=== PATIENT | female | born 1955 | race Caucasian/White ===

== ENCOUNTER 2020-04-07 13:30 | Inpatient (IN) ==
[2020-04-07] MEDS ORDERED: *HR* Warfarin 4 MG TABLET PO SCH (14:00)
[2020-04-07] MEDS: cloNIDine HCL 0.1 MG TABLET PO SCH ×2 (15:08→22:21)
[2020-04-07] MEDS: *HR* OxyCODONE/APAP 5/325 TABLET PO PRN ×2 (15:08→22:21)
[2020-04-07] MEDS: *HR* Metformin 500 MG TABLET PO SCH (17:33)
[2020-04-07] MEDS ORDERED: *HR* Warfarin 2 MG TABLET PO ONE (18:00)
[2020-04-07] MEDS ORDERED: Warfarin perPT PO PRN (18:00)
[2020-04-07] MEDS ORDERED: Dextrose Gel 15 GM/37.5 ML TUBE PO PRN ×2 (19:57)
[2020-04-07] MEDS ORDERED: D5% in Water 1,000 ML IVC PRN (19:57)
[2020-04-07] MEDS ORDERED: *HR* Dextrose 50 % in Water (Vial) 50 ML VIAL IVP PRN (19:57)
[2020-04-07] MEDS: Insulin LISPRO 300 UNITS/3 ML VIAL SQ SCH (21:57)
[2020-04-07] MEDS: Metoprolol 100 MG TABLET PO SCH (22:21)
[2020-04-08] MEDS: *HR* OxyCODONE/APAP 5/325 TABLET PO PRN (04:20)
[2020-04-08 05:40] LABS: Basophils % 0.3 %; Eosinophils # 0.3 K/mcL (0.0-0.6); Eosinophils % 2.3 %; Hematocrit 25.5 % (35.3-44.9); Hemoglobin 8.1 g/dL (11.5-15.4); Immature Granulocytes % 0.4 % (0-4); Lymphocytes % 8.3 %; Mean Corpuscular HGB Conc 31.8 g/dL (31.6-35.5); Mean Corpuscular Hemoglobin 28.8 pg (28.0-33.3); Mean Corpuscular Volume 90.7 fL (83.0-100.0); Mean Platelet Volume 10.3 fL (9.4-12.4); Monocytes # 0.8 K/mcL (0.0-1.3); Neutrophils # 9.4 K/mcL (1.6-8.9); Platelet Count 339 K/mcL (140-400); Red Blood Count 2.81 M/mcL (3.82-4.97); Red Cell Distribution Width 17.9 % (11.5-14.5); Segmented Neutrophils % 81.7 %; White Blood Count 11.5 K/mcL (4.3-11.1)
[2020-04-08 05:59] LABS: Calcium 7.8 mg/dL (8.6-10.3)
[2020-04-08 06:00] LABS: INR 1.2; Prothrombin Time 13.4 Seconds (9.4-12.1)
[2020-04-08] MEDS: Insulin LISPRO 300 UNITS/3 ML VIAL SQ SCH ×4 (07:09→20:20)
[2020-04-08] MEDS: Metoprolol 100 MG TABLET PO SCH ×2 (09:32→20:35)
[2020-04-08] MEDS: cloNIDine HCL 0.1 MG TABLET PO SCH ×3 (09:32→20:35)
[2020-04-08] MEDS: SODIUM ZIRCONIUM CYCLOSILICATE 5 GM POWD.PACK PO SCH (09:32)
[2020-04-08] MEDS: amLODIPine 5 MG TABLET PO SCH (09:32)
[2020-04-08] MEDS: Aspirin Enteric Coated 81 MG Tablet PO SCH (09:32)
[2020-04-08] MEDS: *HR* Metformin 500 MG TABLET PO SCH ×2 (09:32→16:34)
[2020-04-08] MEDS: *HR* OxyCODONE/APAP 7.5/325 TABLET PO PRN ×2 (12:17→18:19)
[2020-04-08] MEDS ORDERED: *HR* Warfarin 4 MG TABLET PO SCH (13:58)
[2020-04-08] MEDS ORDERED: *HR* Warfarin 3 MG TABLET PO ONE (18:00)
[2020-04-09] MEDS ORDERED: Acetaminophen 325 MG TABLET PO ONE (00:31)
[2020-04-09 07:45] LABS: INR 1.6
[2020-04-09 07:46] LABS: Prothrombin Time 18.4 Seconds (9.4-12.1)
[2020-04-09] MEDS: SODIUM ZIRCONIUM CYCLOSILICATE 5 GM POWD.PACK PO SCH (07:58)
[2020-04-09] MEDS: amLODIPine 5 MG TABLET PO SCH (07:59)
[2020-04-09] MEDS: *HR* Metformin 500 MG TABLET PO SCH ×2 (07:59→16:02)
[2020-04-09] MEDS: Metoprolol 100 MG TABLET PO SCH ×2 (07:59→21:08)
[2020-04-09] MEDS: Aspirin Enteric Coated 81 MG Tablet PO SCH (07:59)
[2020-04-09] MEDS: cloNIDine HCL 0.1 MG TABLET PO SCH ×3 (07:59→21:08)
[2020-04-09] MEDS: Insulin LISPRO 300 UNITS/3 ML VIAL SQ SCH ×4 (08:01→20:56)
[2020-04-09 11:00] LABS: Estimated Average Glucose 140 mg/dl
[2020-04-09] MEDS ORDERED: *HR* Warfarin 2 MG TABLET PO ONE (18:00)
[2020-04-09] MEDS: Ondansetron ODT 4 MG TAB.RAPDIS SL PRN (19:43)
[2020-04-10] MEDS: SODIUM ZIRCONIUM CYCLOSILICATE 5 GM POWD.PACK PO SCH (07:39)
[2020-04-10] MEDS: amLODIPine 5 MG TABLET PO SCH (07:39)
[2020-04-10] MEDS: Metoprolol 100 MG TABLET PO SCH ×2 (07:40→20:34)
[2020-04-10] MEDS: cloNIDine HCL 0.1 MG TABLET PO SCH ×3 (07:40→20:34)
[2020-04-10] MEDS: *HR* Metformin 500 MG TABLET PO SCH ×2 (07:40→16:56)
[2020-04-10] MEDS: Aspirin Enteric Coated 81 MG Tablet PO SCH (07:40)
[2020-04-10] MEDS: Insulin LISPRO 300 UNITS/3 ML VIAL SQ SCH ×4 (07:45→20:34)
[2020-04-10 08:42] LABS: Prothrombin Time 34.1 Seconds (9.4-12.1)
[2020-04-10] MEDS: Methyl Salicylate/Menthol 57 APPL/57 GM TUBE TP PRN (20:47)
[2020-04-11 07:18] LABS: INR 4.4; Prothrombin Time 49.9 Seconds (9.4-12.1)
[2020-04-11] MEDS: amLODIPine 5 MG TABLET PO SCH (08:45)
[2020-04-11] MEDS: cloNIDine HCL 0.1 MG TABLET PO SCH ×3 (08:45→21:28)
[2020-04-11] MEDS: Aspirin Enteric Coated 81 MG Tablet PO SCH (08:45)
[2020-04-11] MEDS: Insulin LISPRO 300 UNITS/3 ML VIAL SQ SCH ×4 (08:45→21:29)
[2020-04-11] MEDS: SODIUM ZIRCONIUM CYCLOSILICATE 5 GM POWD.PACK PO SCH (08:45)
[2020-04-11] MEDS: Metoprolol 100 MG TABLET PO SCH ×2 (08:45→21:29)
[2020-04-11] MEDS: *HR* Metformin 500 MG TABLET PO SCH ×2 (08:46→16:44)
[2020-04-11] MEDS: Methyl Salicylate/Menthol 57 APPL/57 GM TUBE TP PRN (11:10)
[2020-04-12 06:35] LABS: Hemoglobin 7.6 g/dL (11.5-15.4); Mean Corpuscular HGB Conc 31.7 g/dL (31.6-35.5); Mean Corpuscular Hemoglobin 27.9 pg (28.0-33.3); Mean Corpuscular Volume 88.2 fL (83.0-100.0); Mean Platelet Volume 10.4 fL (9.4-12.4); Platelet Count 430 K/mcL (140-400); Red Blood Count 2.72 M/mcL (3.82-4.97); White Blood Count 9.5 K/mcL (4.3-11.1)
[2020-04-12 06:46] LABS: INR 2.5
[2020-04-12 06:56] LABS: Calcium 7.2 mg/dL (8.6-10.3); Potassium 3.3 mEq/L (3.5-5.1)
[2020-04-12] MEDS: *HR* Metformin 500 MG TABLET PO SCH ×2 (08:02→16:38)
[2020-04-12] MEDS: Aspirin Enteric Coated 81 MG Tablet PO SCH (08:03)
[2020-04-12] MEDS: amLODIPine 5 MG TABLET PO SCH (08:03)
[2020-04-12] MEDS: cloNIDine HCL 0.1 MG TABLET PO SCH ×3 (08:03→20:00)
[2020-04-12] MEDS: Insulin LISPRO 300 UNITS/3 ML VIAL SQ SCH ×4 (09:23→20:00)
[2020-04-12] MEDS: Metoprolol 100 MG TABLET PO SCH ×2 (09:29→20:04)
[2020-04-12] MEDS: SODIUM ZIRCONIUM CYCLOSILICATE 5 GM POWD.PACK PO SCH (09:30)
[2020-04-12] MEDS ORDERED: *HR* Warfarin 2 MG TABLET PO ONE (18:00)
[2020-04-13 05:25] LABS: INR 2.2; Prothrombin Time 24.7 Seconds (9.4-12.1)
[2020-04-13] MEDS: cloNIDine HCL 0.1 MG TABLET PO SCH ×3 (07:56→21:52)
[2020-04-13] MEDS: Insulin LISPRO 300 UNITS/3 ML VIAL SQ SCH ×4 (07:56→21:52)
[2020-04-13] MEDS: Aspirin Enteric Coated 81 MG Tablet PO SCH (07:56)
[2020-04-13] MEDS: *HR* Metformin 500 MG TABLET PO SCH ×2 (07:56→16:39)
[2020-04-13] MEDS: Metoprolol 100 MG TABLET PO SCH ×2 (07:56→21:51)
[2020-04-13] MEDS: amLODIPine 5 MG TABLET PO SCH (07:56)
[2020-04-13] MEDS: SODIUM ZIRCONIUM CYCLOSILICATE 5 GM POWD.PACK PO SCH (07:56)
[2020-04-13] MEDS ORDERED: *HR* Warfarin 2 MG TABLET PO ONE (18:00)
[2020-04-14 07:10] LABS: INR 2.4; Prothrombin Time 27.5 Seconds (9.4-12.1)
[2020-04-14] MEDS: *HR* Metformin 500 MG TABLET PO SCH (09:09)
[2020-04-14] MEDS: cloNIDine HCL 0.1 MG TABLET PO SCH ×3 (09:10→21:15)
[2020-04-14] MEDS: amLODIPine 5 MG TABLET PO SCH (09:11)
[2020-04-14] MEDS: Metoprolol 100 MG TABLET PO SCH ×2 (09:15→20:59)
[2020-04-14] MEDS: Aspirin Enteric Coated 81 MG Tablet PO SCH (09:16)
[2020-04-14] MEDS: Insulin LISPRO 300 UNITS/3 ML VIAL SQ SCH ×4 (09:51→20:39)
[2020-04-14 17:58] LABS: Basophils % 0.3 %; Eosinophils # 0.3 K/mcL (0.0-0.6); Eosinophils % 2.8 %; Hematocrit 27.3 % (35.3-44.9); Hemoglobin 8.9 g/dL (11.5-15.4); Immature Granulocytes % 0.5 % (0-4); Lymphocytes % 9.4 %; Mean Corpuscular HGB Conc 32.6 g/dL (31.6-35.5); Mean Corpuscular Hemoglobin 28.3 pg (28.0-33.3); Mean Corpuscular Volume 86.7 fL (83.0-100.0); Mean Platelet Volume 10.1 fL (9.4-12.4); Monocytes # 0.9 K/mcL (0.0-1.3); Monocytes % 8.2 %; Neutrophils # 8.2 K/mcL (1.6-8.9); Platelet Count 667 K/mcL (140-400); Red Blood Count 3.15 M/mcL (3.82-4.97); Red Cell Distribution Width 16.7 % (11.5-14.5); Segmented Neutrophils % 78.8 %; White Blood Count 10.4 K/mcL (4.3-11.1)
[2020-04-14] MEDS ORDERED: *HR* Warfarin 2 MG TABLET PO ONE (18:00)
[2020-04-14 18:17] LABS: Calcium 7.8 mg/dL (8.6-10.3); Potassium 3.4 mEq/L (3.5-5.1)
[2020-04-14] MEDS: Ondansetron ODT 4 MG TAB.RAPDIS SL PRN (21:19)
[2020-04-15] MEDS: Insulin LISPRO 300 UNITS/3 ML VIAL SQ SCH ×4 (07:33→20:16)
[2020-04-15 07:52] LABS: Prothrombin Time 33.6 Seconds (9.4-12.1)
[2020-04-15] MEDS: Aspirin Enteric Coated 81 MG Tablet PO SCH (09:00)
[2020-04-15] MEDS: amLODIPine 5 MG TABLET PO SCH (09:02)
[2020-04-15] MEDS: cloNIDine HCL 0.1 MG TABLET PO SCH ×3 (09:02→20:16)
[2020-04-15] MEDS: Metoprolol 100 MG TABLET PO SCH ×2 (13:03→20:16)
[2020-04-15] MEDS ORDERED: *HR* Warfarin 1 MG TABLET PO ONE (18:00)
[2020-04-16 07:31] LABS: INR 2.4; Prothrombin Time 27.2 Seconds (9.4-12.1)
[2020-04-16] MEDS: Insulin LISPRO 300 UNITS/3 ML VIAL SQ SCH ×4 (08:14→20:35)
[2020-04-16] MEDS: Aspirin Enteric Coated 81 MG Tablet PO SCH (08:16)
[2020-04-16] MEDS: cloNIDine HCL 0.1 MG TABLET PO SCH ×3 (08:16→20:34)
[2020-04-16] MEDS: Metoprolol 100 MG TABLET PO SCH ×2 (08:16→20:34)
[2020-04-16] MEDS: amLODIPine 5 MG TABLET PO SCH (08:16)
[2020-04-16] MEDS ORDERED: *HR* Warfarin 1 MG TABLET PO ONE (18:00)
[2020-04-17 06:36] LABS: INR 1.7; Prothrombin Time 19.1 Seconds (9.4-12.1)
[2020-04-17] MEDS: Aspirin Enteric Coated 81 MG Tablet PO SCH (08:06)
[2020-04-17] MEDS: Metoprolol 100 MG TABLET PO SCH ×2 (08:06→21:24)
[2020-04-17] MEDS: cloNIDine HCL 0.1 MG TABLET PO SCH ×3 (08:06→21:24)
[2020-04-17] MEDS: amLODIPine 5 MG TABLET PO SCH (08:06)
[2020-04-17] MEDS: Insulin LISPRO 300 UNITS/3 ML VIAL SQ SCH ×4 (08:06→21:25)
[2020-04-18 05:45] LABS: INR 1.3; Prothrombin Time 14.5 Seconds (9.4-12.1)
[2020-04-18 06:36] VITALS: BP 174/70
[2020-04-18] MEDS: Insulin LISPRO 300 UNITS/3 ML VIAL SQ SCH (07:33)
[2020-04-18] MEDS: Metoprolol 100 MG TABLET PO SCH (09:03)
[2020-04-18] MEDS: Aspirin Enteric Coated 81 MG Tablet PO SCH (09:03)
[2020-04-18] MEDS: amLODIPine 5 MG TABLET PO SCH (09:03)
[2020-04-18] MEDS: cloNIDine HCL 0.1 MG TABLET PO SCH (09:03)
== END 2020-04-18 10:50 | disposition other institution (70) | DRG 687 ==
LOC: INPPIK 14:17
PROVIDERS: ADMIT Family Medicine; ATTEND Family Medicine

== ENCOUNTER 2021-01-10 13:30 | Inpatient (IN) ==
[2021-01-10 14:36] LABS: Basophils # 0.1 K/mcL (0.0-0.2); Basophils % 0.5 %; Eosinophils # 0.1 K/mcL (0.0-0.6); Eosinophils % 0.5 %; Hematocrit 23.4 % (35.3-44.9); Hemoglobin 7.3 g/dL (11.5-15.4); Immature Granulocytes % 0.3 % (0-4); Lymphocytes # 1.1 K/mcL (0.6-4.6); Lymphocytes % 10.1 %; Mean Corpuscular HGB Conc 31.2 g/dL (31.6-35.5); Mean Corpuscular Hemoglobin 28.2 pg (28.0-33.3); Mean Corpuscular Volume 90.3 fL (83.0-100.0); Mean Platelet Volume 9.3 fL (9.4-12.4); Monocytes # 0.8 K/mcL (0.0-1.3); Monocytes % 7.5 %; Neutrophils # 8.9 K/mcL (1.6-8.9); Platelet Count 588 K/mcL (140-400); Red Blood Count 2.59 M/mcL (3.82-4.97); Red Cell Distribution Width 14.6 % (11.5-14.5); Segmented Neutrophils % 81.1 %; White Blood Count 10.9 K/mcL (4.3-11.1)
[2021-01-10 14:49] LABS: Bilirubin,Urine Negative (Negative); Blood,Urine Small (Negative); Clarity,Urine Slightly Cloudy (Clear); Color,Urine Yellow (Yellow); Glucose,Urine (UA) 100 mg/dL (Normal); Ketones,Urine Negative (Negative); Leukocyte Esterase,Urine Trace (Negative); Nitrite,Urine Negative (Negative); PH,Urine 5.5 pH Units (5.0-8.0); Protein,Urine >=300 mg/dL (Neg-Trace); Urobilinogen,Urine Normal (Normal)
[2021-01-10 14:56] LABS: Albumin/Globulin Ratio 1.1 (1.1-2.2); Bilirubin,Direct 0.1 mg/dL (0.0-0.2); Bilirubin,Total 0.1 mg/dL (0.3-1.0); Globulin 2.8 g/dL (2.4-3.5); Potassium 5.5 mEq/L (3.5-5.1); Total Protein 5.8 g/dL (6.4-8.9)
[2021-01-10 14:56] LABS: Bacteria,Urine Moderate per hpf (None-Few); Squamous Epithelial Cell,Urine Moderate per hpf (None-Few); WBC,Urine 50-100 per hpf (0-3)
[2021-01-10] MEDS ORDERED: 0.9 % Sodium Chloride 500 ML IVC ONE (15:00)
[2021-01-10] MEDS ORDERED: *HR* Dextrose 50 % in Water (Syg) 50 ML SYRINGE IVP ONE (15:00)
[2021-01-10] MEDS ORDERED: Insulin Human Regular 10 UNIT in 0.9 % Sodium Chloride 10 ML IV ONE (15:00)
[2021-01-10 15:13] LABS: Activated Partial Thrombo Time 52.1 Seconds (26.0-36.0); INR 3.5; Prothrombin Time 38.9 Seconds (9.4-12.1)
[2021-01-10] MEDS: 0.9 % Sodium Chloride 1,000 ML IVC SCH ×2 (15:37→23:56)
[2021-01-10] MEDS ORDERED: Melatonin 3 MG TABLET PO PRN (17:15)
[2021-01-10] MEDS ORDERED: MOM Conc 10 ML UD.LIQ PO PRN (17:15)
[2021-01-10] MEDS ORDERED: Ondansetron 4 MG/2 ML VIAL IVP PRN (17:15)
[2021-01-10] MEDS ORDERED: Mag Hydrox/Al Hydrox/Simeth 30 ML UDC PO PRN (17:15)
[2021-01-10] MEDS ORDERED: Naloxone 0.4 MG/ML INJ IVP PRN (17:15)
[2021-01-10] MEDS ORDERED: D5% in Water 1,000 ML IVC PRN (17:18)
[2021-01-10] MEDS ORDERED: *HR* Dextrose 50 % in Water (Vial) 50 ML VIAL IVP PRN (17:18)
[2021-01-10] MEDS ORDERED: Dextrose Gel 15 GM/37.5 ML TUBE PO PRN ×2 (17:18)
[2021-01-10] MEDS ORDERED: *HR* Warfarin 3 MG TABLET PO SCH (19:29)
[2021-01-10] MEDS: Metoprolol 100 MG TABLET PO SCH (21:01)
[2021-01-10] MEDS: cloNIDine HCL 0.1 MG TABLET PO SCH (21:01)
[2021-01-10] MEDS: Insulin LISPRO 300 UNITS/3 ML VIAL SUBQ SCH (21:07)
[2021-01-11 04:01] LABS: Hematocrit 19.2 % (35.3-44.9); Hemoglobin 6.1 g/dL (11.5-15.4); Mean Corpuscular HGB Conc 31.8 g/dL (31.6-35.5); Mean Corpuscular Hemoglobin 28.5 pg (28.0-33.3); Mean Corpuscular Volume 89.7 fL (83.0-100.0); Mean Platelet Volume 9.8 fL (9.4-12.4); Platelet Count 455 K/mcL (140-400); Red Blood Count 2.14 M/mcL (3.82-4.97); Red Cell Distribution Width 14.2 % (11.5-14.5)
[2021-01-11 04:31] LABS: Calcium 7.4 mg/dL (8.6-10.3)
[2021-01-11] MEDS: Aspirin Enteric Coated 81 MG Tablet PO SCH (07:41)
[2021-01-11] MEDS: Metoprolol 100 MG TABLET PO SCH (07:41)
[2021-01-11] MEDS: amLODIPine 5 MG TABLET PO SCH (07:41)
[2021-01-11] MEDS: SODIUM ZIRCONIUM CYCLOSILICATE 5 GM POWD.PACK PO SCH (07:42)
[2021-01-11] MEDS: Cyanocobalamin (B-12) 1,000 MCG TABLET PO SCH (07:42)
[2021-01-11] MEDS: cloNIDine HCL 0.1 MG TABLET PO SCH (07:42)
[2021-01-11] MEDS: 0.9 % Sodium Chloride 1,000 ML IVC SCH (07:42)
[2021-01-11] MEDS: Insulin LISPRO 300 UNITS/3 ML VIAL SUBQ SCH ×4 (07:48→20:10)
[2021-01-11] MEDS ORDERED: Warfarin perPT PO PRN (07:52)
[2021-01-11 08:11] LABS: Prothrombin Time 35.5 Seconds (9.4-12.1)
[2021-01-11 08:12] LABS: INR 3.2
[2021-01-11] MEDS: cefTRIAXone 2,000 MG in 0.9 % Sodium Chloride Mini Bag 100 ML IVPB SCH (09:42)
[2021-01-11] MEDS ORDERED: 0.9 % Sodium Chloride 250 ML IVC SCH (09:45)
[2021-01-11] MEDS ORDERED: *HR* Atropine Sulfate 1 MG/10 ML SYRINGE IVP PRN (10:02)
[2021-01-11 10:43] LABS: Alanine Aminotransferase 14 Units/L (7-52); Albumin 2.2 g/dL (3.5-5.7); Alkaline Phosphatase 89 Units/L (34-104); Aspartate Amino Transferase 15 Units/L (13-39); BUN/Creatinine Ratio 11 (6-26); Bilirubin,Total 0.1 mg/dL (0.3-1.0); Blood Urea Nitrogen 22 mg/dL (8-23); Calcium 7.1 mg/dL (8.6-10.3); Carbon Dioxide 19 mEq/L (23-29); Chloride 112 mEq/L (98-107); Globulin 2.1 g/dL (2.4-3.5); Glucose 171 mg/dL (70-105); Magnesium 2.3 mg/dL (1.6-2.6); Osmolality,Calculated 293 (280-300); Phosphorous 4.6 mg/dL (2.7-4.5); Potassium 4.4 mEq/L (3.5-5.1); Sodium 138 mEq/L (136-145); Total Protein 4.3 g/dL (6.4-8.9); eGFR For African Americans 32 (> 60); eGFR For Non-African Americans 26 (> 60)
[2021-01-11 10:46] LABS: Troponin I < 0.03 ng/mL (< 0.04)
[2021-01-11] MEDS: Folic Acid 1 MG TABLET PO SCH (11:48)
[2021-01-11 15:10] LABS: Basophils # 0.1 K/mcL (0.0-0.2); Basophils % 0.6 %; Eosinophils # 0.2 K/mcL (0.0-0.6); Eosinophils % 2.2 %; Hematocrit 23.4 % (35.3-44.9); Hemoglobin 7.4 g/dL (11.5-15.4); Immature Granulocytes % 0.4 % (0-4); Lymphocytes # 1.7 K/mcL (0.6-4.6); Mean Corpuscular HGB Conc 31.6 g/dL (31.6-35.5); Mean Corpuscular Hemoglobin 28.5 pg (28.0-33.3); Mean Platelet Volume 9.6 fL (9.4-12.4); Monocytes # 0.8 K/mcL (0.0-1.3); Monocytes % 9.4 %; Neutrophils # 5.6 K/mcL (1.6-8.9); Platelet Count 435 K/mcL (140-400); Segmented Neutrophils % 67.4 %; White Blood Count 8.3 K/mcL (4.3-11.1)
[2021-01-11] MEDS: Ringers Solution, Lactated 1,000 ML IVC SCH ×2 (15:19→23:33)
[2021-01-11] MEDS ORDERED: *HR* Warfarin 3 MG TABLET PO SCH (18:00)
[2021-01-11] MEDS: hydrALAZINE 25 MG TABLET PO PRN (23:32)
[2021-01-12] MEDS: Acetaminophen 325 MG TABLET PO PRN ×2 (00:04→22:07)
[2021-01-12 07:42] LABS: Hematocrit 27.8 % (35.3-44.9); Hemoglobin 8.3 g/dL (11.5-15.4); Mean Corpuscular HGB Conc 29.9 g/dL (31.6-35.5); Mean Corpuscular Hemoglobin 27.9 pg (28.0-33.3); Mean Corpuscular Volume 93.3 fL (83.0-100.0); Mean Platelet Volume 9.7 fL (9.4-12.4); Platelet Count 460 K/mcL (140-400); Red Blood Count 2.98 M/mcL (3.82-4.97); Red Cell Distribution Width 15.6 % (11.5-14.5); White Blood Count 10.5 K/mcL (4.3-11.1)
[2021-01-12 08:09] LABS: Albumin 2.5 g/dL (3.5-5.7); Bilirubin,Total 0.2 mg/dL (0.3-1.0); Calcium 7.7 mg/dL (8.6-10.3); Globulin 2.5 g/dL (2.4-3.5); Potassium 4.6 mEq/L (3.5-5.1)
[2021-01-12] MEDS: Aspirin Enteric Coated 81 MG Tablet PO SCH (08:11)
[2021-01-12] MEDS: amLODIPine 5 MG TABLET PO SCH (08:11)
[2021-01-12] MEDS: Folic Acid 1 MG TABLET PO SCH (08:11)
[2021-01-12] MEDS: hydrALAZINE 25 MG TABLET PO PRN (08:12)
[2021-01-12] MEDS: Insulin LISPRO 300 UNITS/3 ML VIAL SUBQ SCH ×4 (08:12→20:24)
[2021-01-12] MEDS: Isosorbide MONOnitrate (24 HR) 60 MG TAB.ER.24H PO SCH (08:12)
[2021-01-12] MEDS: SODIUM ZIRCONIUM CYCLOSILICATE 5 GM POWD.PACK PO SCH (08:12)
[2021-01-12] MEDS: Cyanocobalamin (B-12) 1,000 MCG TABLET PO SCH (08:12)
[2021-01-12] MEDS: Ringers Solution, Lactated 1,000 ML IVC SCH ×2 (08:13→14:48)
[2021-01-12] MEDS: cefTRIAXone 2,000 MG in 0.9 % Sodium Chloride Mini Bag 100 ML IVPB SCH (09:12)
[2021-01-12 09:49] LABS: Estimated Average Glucose 134 mg/dl; Hemoglobin A1C 6.3 %
[2021-01-12 10:27] LABS: INR 1.4
[2021-01-12] MEDS ORDERED: *HR* Warfarin 4 MG TABLET PO SCH (17:25)
[2021-01-12] MEDS ORDERED: *HR* Warfarin 3 MG TABLET PO ONE (18:00)
[2021-01-13] MEDS: hydrALAZINE 25 MG TABLET PO PRN (06:23)
[2021-01-13] MEDS: Insulin LISPRO 300 UNITS/3 ML VIAL SUBQ SCH (07:19)
[2021-01-13 07:36] LABS: Hematocrit 25.2 % (35.3-44.9); Hemoglobin 8.1 g/dL (11.5-15.4); Mean Corpuscular HGB Conc 32.1 g/dL (31.6-35.5); Mean Corpuscular Volume 87.2 fL (83.0-100.0); Mean Platelet Volume 9.6 fL (9.4-12.4); Platelet Count 400 K/mcL (140-400); Red Blood Count 2.89 M/mcL (3.82-4.97); White Blood Count 9.7 K/mcL (4.3-11.1)
[2021-01-13] MEDS: amLODIPine 5 MG TABLET PO SCH (07:41)
[2021-01-13] MEDS: Isosorbide MONOnitrate (24 HR) 60 MG TAB.ER.24H PO SCH (07:41)
[2021-01-13] MEDS: Cyanocobalamin (B-12) 1,000 MCG TABLET PO SCH (07:41)
[2021-01-13] MEDS: Folic Acid 1 MG TABLET PO SCH (07:41)
[2021-01-13] MEDS: Aspirin Enteric Coated 81 MG Tablet PO SCH (07:41)
[2021-01-13] MEDS: cefTRIAXone 2,000 MG in 0.9 % Sodium Chloride Mini Bag 100 ML IVPB SCH (07:42)
[2021-01-13] MEDS: Acetaminophen 325 MG TABLET PO PRN (07:42)
[2021-01-13] MEDS: SODIUM ZIRCONIUM CYCLOSILICATE 5 GM POWD.PACK PO SCH (07:42)
[2021-01-13 08:02] LABS: Albumin 2.4 g/dL (3.5-5.7); Bilirubin,Total 0.1 mg/dL (0.3-1.0); Calcium 7.5 mg/dL (8.6-10.3); Globulin 2.4 g/dL (2.4-3.5); Potassium 4.4 mEq/L (3.5-5.1); Total Protein 4.8 g/dL (6.4-8.9)
[2021-01-13 08:32] LABS: INR 1.2; Prothrombin Time 13.4 Seconds (9.4-12.1)
[2021-01-13 09:29] VITALS: BP 155/72
== END 2021-01-13 10:29 | disposition home or self-care (01) | DRG 683 ==
LOC: EMEROOPIK 13:30 → INPPIK 13:30
PROVIDERS: ADMIT Family Medicine; ATTEND Family Medicine

== ENCOUNTER 2021-07-14 17:39 | Inpatient (IN) ==
[2021-07-14 18:56] LABS: Basophils % 0.3 %; Eosinophils # 0.1 K/mcL (0.0-0.6); Eosinophils % 0.5 %; Hematocrit 25.6 % (35.3-44.9); Hemoglobin 8.1 g/dL (11.5-15.4); Immature Granulocytes % 0.7 % (0-4); Lymphocytes # 0.8 K/mcL (0.6-4.6); Mean Corpuscular HGB Conc 31.6 g/dL (31.6-35.5); Mean Corpuscular Hemoglobin 29.1 pg (28.0-33.3); Mean Corpuscular Volume 92.1 fL (83.0-100.0); Mean Platelet Volume 10.1 fL (9.4-12.4); Monocytes # 0.9 K/mcL (0.0-1.3); Monocytes % 6.5 %; Neutrophils # 11.9 K/mcL (1.6-8.9); Platelet Count 429 K/mcL (140-400); Red Blood Count 2.78 M/mcL (3.82-4.97); Red Cell Distribution Width 15.7 % (11.5-14.5); White Blood Count 13.8 K/mcL (4.3-11.1)
[2021-07-14 19:12] LABS: Alanine Aminotransferase 38 Units/L (7-52); Albumin 3.3 g/dL (3.5-5.7); Albumin/Globulin Ratio 1.2 (1.1-2.2); Alkaline Phosphatase 106 Units/L (34-104); Aspartate Amino Transferase 34 Units/L (13-39); BUN/Creatinine Ratio 18 (6-26); Bilirubin,Total 0.2 mg/dL (0.3-1.0); Blood Urea Nitrogen 61 mg/dL (8-23); Calcium 7.8 mg/dL (8.6-10.3); Carbon Dioxide 15 mEq/L (23-29); Chloride 108 mEq/L (98-107); Globulin 2.7 g/dL (2.4-3.5); Glucose 60 mg/dL (70-105); Osmolality,Calculated 293 (280-300); Potassium 4.9 mEq/L (3.5-5.1); Sodium 134 mEq/L (136-145); eGFR For African Americans 16 (> 60); eGFR For Non-African Americans 13 (> 60)
[2021-07-14 19:16] LABS: Troponin I < 0.03 ng/mL (< 0.04)
[2021-07-14 19:25] LABS: Bilirubin,Urine Negative (Negative); Blood,Urine Negative (Negative); Clarity,Urine Clear (Clear); Color,Urine Yellow (Yellow); Glucose,Urine (UA) Normal (Normal); Ketones,Urine Negative (Negative); Leukocyte Esterase,Urine Trace (Negative); Nitrite,Urine Negative (Negative); Protein,Urine >=300 mg/dL (Neg-Trace); Urobilinogen,Urine Normal (Normal)
[2021-07-14 19:39] LABS: WBC,Urine 15-30 per hpf (0-3)
[2021-07-14 19:40] LABS: Bacteria,Urine Moderate per hpf (None-Few); RBC,Urine 0-3 per hpf (0-3); Squamous Epithelial Cell,Urine Few per hpf (None-Few)
[2021-07-14 19:41] LABS: Hyaline Casts,Urine Few per lpf (None Seen)
[2021-07-14] MEDS ORDERED: Dextrose Gel 15 GM/37.5 ML TUBE PO ONE (23:08)
[2021-07-15] MEDS ORDERED: Furosemide 20 MG/2 ML VIAL IVP ONE (00:05)
[2021-07-15] MEDS ORDERED: Naloxone 0.4 MG/ML INJ IVP PRN (00:10)
[2021-07-15] MEDS ORDERED: D5% in Water 1,000 ML IVC PRN ×2 (00:13→15:46)
[2021-07-15] MEDS ORDERED: *HR* Dextrose 50 % in Water (Syg) 50 ML SYRINGE IVP PRN ×2 (00:13→15:46)
[2021-07-15] MEDS ORDERED: Dextrose Gel 15 GM/37.5 ML TUBE PO PRN ×4 (00:13→15:46)
[2021-07-15] MEDS: hydrALAZINE 25 MG TABLET PO SCH ×2 (08:21→16:52)
[2021-07-15] MEDS: Cyanocobalamin (B-12) 1,000 MCG TABLET PO SCH (08:21)
[2021-07-15] MEDS: amLODIPine 5 MG TABLET PO SCH (08:21)
[2021-07-15] MEDS: cloNIDine HCL 0.1 MG TABLET PO SCH (08:21)
[2021-07-15 09:25] LABS: Basophils # 0.1 K/mcL (0.0-0.2); Basophils % 0.5 %; Eosinophils # 0.2 K/mcL (0.0-0.6); Eosinophils % 1.6 %; Hematocrit 25.5 % (35.3-44.9); Hemoglobin 8.2 g/dL (11.5-15.4); Immature Granulocytes % 0.5 % (0-4); Lymphocytes # 1.3 K/mcL (0.6-4.6); Lymphocytes % 12.1 %; Mean Corpuscular HGB Conc 32.2 g/dL (31.6-35.5); Mean Corpuscular Hemoglobin 29.2 pg (28.0-33.3); Mean Corpuscular Volume 90.7 fL (83.0-100.0); Mean Platelet Volume 10.7 fL (9.4-12.4); Monocytes # 0.9 K/mcL (0.0-1.3); Monocytes % 7.8 %; Neutrophils # 8.5 K/mcL (1.6-8.9); Platelet Count 413 K/mcL (140-400); Red Blood Count 2.81 M/mcL (3.82-4.97); Red Cell Distribution Width 15.9 % (11.5-14.5); Segmented Neutrophils % 77.5 %
[2021-07-15 10:05] LABS: Calcium 7.9 mg/dL (8.6-10.3); Potassium 4.9 mEq/L (3.5-5.1)
[2021-07-15] MEDS ORDERED: cefTRIAXone 1,000 MG in 0.9 % Sodium Chloride Mini Bag 100 ML IVPB SCH (16:00)
[2021-07-15] MEDS: Insulin LISPRO 300 UNITS/3 ML VIAL SUBQ SCH ×2 (16:42→21:10)
[2021-07-16] MEDS: hydrALAZINE 25 MG TABLET PO SCH ×4 (00:08→23:04)
[2021-07-16] MEDS: Ondansetron 4 MG/2 ML VIAL IVP PRN (00:28)
[2021-07-16] MEDS: Insulin LISPRO 300 UNITS/3 ML VIAL SUBQ SCH ×4 (08:35→21:55)
[2021-07-16] MEDS: amLODIPine 5 MG TABLET PO SCH (08:36)
[2021-07-16] MEDS: cloNIDine HCL 0.1 MG TABLET PO SCH (08:37)
[2021-07-16] MEDS: Cyanocobalamin (B-12) 1,000 MCG TABLET PO SCH (08:37)
[2021-07-16 08:49] LABS: Basophils # 0.1 K/mcL (0.0-0.2); Basophils % 0.6 %; Eosinophils # 0.3 K/mcL (0.0-0.6); Eosinophils % 2.6 %; Hematocrit 23.4 % (35.3-44.9); Hemoglobin 7.4 g/dL (11.5-15.4); Immature Granulocytes % 0.4 % (0-4); Lymphocytes # 1.5 K/mcL (0.6-4.6); Lymphocytes % 15.2 %; Mean Corpuscular HGB Conc 31.6 g/dL (31.6-35.5); Mean Corpuscular Hemoglobin 28.8 pg (28.0-33.3); Mean Corpuscular Volume 91.1 fL (83.0-100.0); Mean Platelet Volume 10.5 fL (9.4-12.4); Monocytes # 0.8 K/mcL (0.0-1.3); Monocytes % 8.3 %; Neutrophils # 7.4 K/mcL (1.6-8.9); Platelet Count 376 K/mcL (140-400); Red Blood Count 2.57 M/mcL (3.82-4.97); Segmented Neutrophils % 72.9 %; White Blood Count 10.1 K/mcL (4.3-11.1)
[2021-07-16 09:04] LABS: Calcium 7.4 mg/dL (8.6-10.3); Potassium 4.9 mEq/L (3.5-5.1)
[2021-07-16 14:09] LABS: Estimated Average Glucose 120 mg/dl; Hemoglobin A1C 5.8 %
[2021-07-17] MEDS: Insulin LISPRO 300 UNITS/3 ML VIAL SUBQ SCH ×4 (08:06→22:04)
[2021-07-17 08:07] LABS: Basophils # 0.1 K/mcL (0.0-0.2); Basophils % 0.8 %; Eosinophils # 0.3 K/mcL (0.0-0.6); Eosinophils % 3.4 %; Hematocrit 24.4 % (35.3-44.9); Hemoglobin 7.7 g/dL (11.5-15.4); Immature Granulocytes % 0.3 % (0-4); Lymphocytes # 1.5 K/mcL (0.6-4.6); Lymphocytes % 16.1 %; Mean Corpuscular HGB Conc 31.6 g/dL (31.6-35.5); Mean Corpuscular Hemoglobin 28.8 pg (28.0-33.3); Mean Corpuscular Volume 91.4 fL (83.0-100.0); Mean Platelet Volume 10.2 fL (9.4-12.4); Monocytes # 0.8 K/mcL (0.0-1.3); Monocytes % 9.1 %; Neutrophils # 6.3 K/mcL (1.6-8.9); Platelet Count 358 K/mcL (140-400); Red Blood Count 2.67 M/mcL (3.82-4.97); Red Cell Distribution Width 15.5 % (11.5-14.5); Segmented Neutrophils % 70.3 %
[2021-07-17 08:30] LABS: Calcium 7.7 mg/dL (8.6-10.3); Potassium 4.9 mEq/L (3.5-5.1)
[2021-07-17] MEDS: cloNIDine HCL 0.1 MG TABLET PO SCH (08:38)
[2021-07-17] MEDS: Cyanocobalamin (B-12) 1,000 MCG TABLET PO SCH (08:39)
[2021-07-17] MEDS: hydrALAZINE 25 MG TABLET PO SCH ×2 (08:39→15:24)
[2021-07-17] MEDS: amLODIPine 5 MG TABLET PO SCH (08:39)
[2021-07-17] MEDS: 0.9 % Sodium Chloride 1,000 ML IVC SCH (12:30)
[2021-07-17] MEDS ORDERED: Bismuth Subsalicylate 120 ML ORAL SUSPENSION PO SCH (13:30)
[2021-07-17] MEDS: Amoxicillin 500 MG CAPSULE PO SCH ×2 (15:24→22:00)
[2021-07-17] MEDS: Bismuth Subsalicylate 120 ML ORAL SUSPENSION PO SCH ×2 (15:34→22:02)
[2021-07-17] MEDS: Ondansetron 4 MG/2 ML VIAL IVP PRN (22:11)
[2021-07-18] MEDS: hydrALAZINE 25 MG TABLET PO SCH ×2 (00:48→10:11)
[2021-07-18] MEDS: 0.9 % Sodium Chloride 1,000 ML IVC SCH (00:59)
[2021-07-18 08:08] LABS: Basophils # 0.1 K/mcL (0.0-0.2); Basophils % 0.7 %; Eosinophils # 0.4 K/mcL (0.0-0.6); Eosinophils % 4.6 %; Hematocrit 22.6 % (35.3-44.9); Hemoglobin 7.2 g/dL (11.5-15.4); Immature Granulocytes % 0.5 % (0-4); Lymphocytes # 1.3 K/mcL (0.6-4.6); Lymphocytes % 16.5 %; Mean Corpuscular HGB Conc 31.9 g/dL (31.6-35.5); Mean Corpuscular Volume 91.1 fL (83.0-100.0); Mean Platelet Volume 10.4 fL (9.4-12.4); Monocytes # 0.7 K/mcL (0.0-1.3); Monocytes % 8.9 %; Neutrophils # 5.3 K/mcL (1.6-8.9); Platelet Count 329 K/mcL (140-400); Red Blood Count 2.48 M/mcL (3.82-4.97); Red Cell Distribution Width 15.1 % (11.5-14.5); Segmented Neutrophils % 68.8 %; White Blood Count 7.6 K/mcL (4.3-11.1)
[2021-07-18 08:19] VITALS: BP 164/67; PULSE 69; RESP 18; TEMP 98.3; O2SAT 94
[2021-07-18 08:32] LABS: Calcium 7.2 mg/dL (8.6-10.3); Potassium 4.4 mEq/L (3.5-5.1)
[2021-07-18] MEDS: cloNIDine HCL 0.1 MG TABLET PO SCH (10:10)
[2021-07-18] MEDS: Bismuth Subsalicylate 120 ML ORAL SUSPENSION PO SCH (10:10)
[2021-07-18] MEDS: amLODIPine 5 MG TABLET PO SCH (10:11)
[2021-07-18] MEDS: Cyanocobalamin (B-12) 1,000 MCG TABLET PO SCH (10:11)
[2021-07-18] MEDS: Amoxicillin 500 MG CAPSULE PO SCH (10:11)
[2021-07-18] MEDS: Insulin LISPRO 300 UNITS/3 ML VIAL SUBQ SCH (10:14)
== END 2021-07-18 12:10 | disposition home or self-care (01) | DRG 638 ==
LOC: INPPIK 17:39 → EMEROOPIK 17:39 → INPPIK 07-15 01:02
PROVIDERS: ADMIT Internal Medicine; ATTEND Internal Medicine